=== PATIENT | male | born 1960 | race Caucasian/White ===

== ENCOUNTER → 2017-09-09 | Outpatient (CLI) | payer BC ==
[~2017-09-09] MED LIST: ASPI325T39 PO; BNC5 PO; DRN400 PO; GLC5; METF1000 PO; PRAV40TA2 PO; TRAV0.00 OPB
[2017-09-09 12:02] LABS: BLOOD UREA NITROGEN 11 mg/dl (7-18); CREATININE 0.87 mg/dl (0.60-1.40)
== END | disposition home or self-care (01) ==
LOC: C.LAB 11:19
PROVIDERS: ATTEND Emergency Medicine
DX: E11.621 Type 2 diabetes mellitus with foot ulcer (principal); L97.521 Non-pressure chronic ulcer of other part of left foot limited to breakdown of skin

== ENCOUNTER → 2017-09-10 | Outpatient (CLI) | payer BC ==
[~2017-09-10] MED LIST changes: +GADAVIST IV PRN
--- NOTE | 2017-09-10 12:10 | DIAGNOSTIC IMAGING REPORT ---
MRI OF THE LEFT FOREFOOT WITH AND WITHOUT CONTRAST CLINICAL HISTORY: Left foot nonhealing wound. Infection. COMPARISON STUDY: Left foot radiographs June 09, 2011. TECHNIQUE: Utilizing a 1.5 Nan magnet and dedicated coil, multiplanar, multiecho imaging of the left forefoot was performed pre and postcontrast administration. Injection of 11.5 cc of Gadavist IV was uneventful. FINDINGS: Postoperative findings consistent with amputation of the left first toe at the level of the metatarsophalangeal joint is noted. There is no marrow edema to suggest osteomyelitis. There is mild subcutaneous edema overlying the left first metatarsal head. There is no rim-enhancing fluid collection to suggest an abscess on the postcontrast images. There is mild enhancement along the plantar aspect of the left first metatarsal head which may reflect cellulitis. There is subchondral signal abnormality within the left second metatarsal head. Degenerative changes at the metatarsal sesamoid articulations of the left first toe are noted. IMPRESSION: 1. Status post amputation of the left first toe. No evidence of osteomyelitis. No abscess. Mild edema and enhancement adjacent to the left first metatarsal head may reflect mild cellulitis. 2. Subchondral signal abnormality and slight collapse within the left second metatarsal head which may reflect osteoarthritis or an osteochondral lesion. Electronically signed by: Ish Donovan M.D. 09/10/2017 12:08 PM Dictated Date/Time: 09/10/2017 12:01 PM
== END | disposition home or self-care (01) ==
LOC: C.MRI 10:49
PROVIDERS: ATTEND Physician Assistant
DX: E11.621 Type 2 diabetes mellitus with foot ulcer (principal); L97.521 Non-pressure chronic ulcer of other part of left foot limited to breakdown of skin

== ENCOUNTER 2018-02-22 11:53 | Emergency (ER) | payer BC ==
[~2018-02-22] VITALS: Ht 180.3 cm; Wt 119.2 kg
[~2018-02-22 11:53] MED LIST changes: -GADAVIST IV PRN
[2018-02-22 11:58] VITALS: TEMP 36.2; Ht 180.3 cm; Wt 119.2 kg
[2018-02-22] MEDS ORDERED: ASPIRIN 81 MG CHEW PO STA (12:18)
[2018-02-22 12:28] LABS: BASO % 0.8 %; BASO ABS # 0.08 K/uL (0-0.2); EOS ABS # 0.19 K/uL (0-0.5); HEMATOCRIT 45.1 % (42-52); IG# 0.11 K/uL (0.00-0.02); LYMPH ABS # 2.48 K/uL (1.2-3.4); MEAN CELL VOLUME 88.4 fL (80-100); MEAN CORPUSCULAR HEMOGLOBIN 31.4 pg (25-34); MEAN CORPUSCULAR HGB CONC 35.5 g/dl (32-36); MEAN PLATELET VOLUME 9.7 fL (7.4-10.4); MONO % 10.6 %; MONO ABS # 1.01 K/uL (0.11-0.59); NEUT % 59.4 %; NEUT ABS # 5.66 K/uL (1.4-6.5); PLATELET COUNT 257 K/uL (130-400); RED CELL DISTRIBUTION WIDTH CV 12.5 % (11.5-14.5); RED CELL DISTRIBUTION WIDTH SD 40.2 fL (36.4-46.3); WHITE BLOOD COUNT 9.53 K/uL (4.8-10.8)
[2018-02-22 12:36] LABS: PTT PATIENT 23.6 SECONDS (21.0-31.0)
--- NOTE | 2018-02-22 12:42 | DIAGNOSTIC IMAGING REPORT ---
SINGLE VIEW CHEST CLINICAL HISTORY: Cough. Atypical chest pain. FINDINGS: An AP, portable, upright chest radiograph is compared to study dated 11/20/2012 and correlated with chest CT dated 07/29/2012. The examination is degraded by portable technique and patient rotation. The heart is top normal for projection. Chronic interstitial thickening is similar to previous. No airspace consolidation or large pleural effusion is identified. No pneumothorax is seen. The bony thorax is grossly intact. IMPRESSION: No acute cardiopulmonary abnormality. Electronically signed by: Leon Guillaume M.D. 02/22/2018 12:41 PM Dictated Date/Time: 02/22/2018 12:40 PM
[2018-02-22 12:56] LABS: ALBUMIN 3.7 gm/dl (3.4-5.0); ALKALINE PHOSPHATASE 91 U/L (45-117); ALT/SGPT 36 U/L (12-78); AST/SGOT 27 U/L (15-37); BLOOD UREA NITROGEN 15 mg/dl (7-18); CALCIUM 8.5 mg/dl (8.5-10.1); CARBON DIOXIDE 25 mmol/L (21-32); CREATININE 0.82 mg/dl (0.60-1.40); GLUCOSE 160 mg/dl (70-99); POTASSIUM 4.4 mmol/L (3.5-5.1); SODIUM 135 mmol/L (136-145); TOTAL PROTEIN 7.6 gm/dl (6.4-8.2)
--- NOTE | 2018-02-22 13:01 | EMERGENCY ROOM VISIT NOTE ---
History Report prepared by Karla: Ondina Dunn Under the Supervision of: Dr. Alem Barreto M.D. First contact with patient: 12:08 Chief Complaint: CARDIAC ASSESSMENT Stated Complaint: SOB, PRESSURE IN CHEST, SORE JAW, BLOATED History of Present Illness The patient is a 57 year old male who presents to the Emergency Room for a cardiac assessment. The patient states that he has been having heart burn problems and has seen his PCP for it. He states that 1.5 months ago he was placed on Prilosec and told to schedule another appointment if it wasn't gone by then. He states that he went to his PCP today to schedule an appointment and they sent him over to Dr. Adair- [facility]. He reports that Dr. Adair sent him here. The patient states that yesterday he had chest pressure that radiated into his jaw. He states that he was "fooling around" in his wood shop when it came on. He states that the shop was hot and he was sweating, but he was not exerting himself at the time. The patient complains of an intermittent cough with intermittent phlegm for 2 months. The patient denies a fever, abdominal pain, leg swelling, and current chest pain. The patient notes that he used to see Dr. Vogt-[facility] 5 years ago for atrial fibrillation. He states that he had an ablation done and hasn't been in atrial fibrillation since. He notes that he takes a baby Aspirin daily and took one this morning. The patient notes that he has a history of Diabetes and his sugars have been between 80 and 170. Source of History: patient Onset: yesterday Position: chest Quality: pressure Timing: intermittent Associated Symptoms: + cough (productive), No fevers, No chest pain, No abdominal pain Note: The patient complains of the pain radiating to his jaw. The patient denies leg swelling. Review of Systems See HPI for pertinent positives & negatives. A total of 10 systems reviewed and were otherwise negative. Past Medical & Surgical Medical Problems: (1) Diabetes mellitus type 2 (2) Diabetic neuropathy (3) Diabetic peripheral neuropathy associated with type 2 diabetes mellitus (4) Erectile dysfunction associated with type 2 diabetes mellitus (5) History of diabetic ulcer of foot (6) Loss of sensation (7) Obesity (8) Peripheral vascular disease (9) Status post partial amputation of foot Family History FH: CAD (coronary artery disease) Stent Social History Smoking Status: Never Smoker Alcohol Use: occasionally Drug Use: none Marital Status: Housing Status: lives with family Occupation Status: employed Current/Historical Medications Scheduled Aspirin (Aspirin Ec), 325 MG PO DAILY Glipizide (Glipizide), QD@08 Metformin Hcl (Glucophage), 1,000 MG PO BID Olmesartan Medoxomil (Benicar), 5 MG PO DAILY Pravastatin Sodium (Pravastatin Sodium), 40 MG PO HS Travoprost (Travatan Z), 1 DROP OPB HS Allergies Coded Allergies: Lisinopril (Verified Adverse Reaction, Unknown, Cough., 02/22/18) Physical Exam Vital Signs Date Time Temp Pulse Resp B/P (MAP) Pulse Ox O2 Delivery O2 Flow Rate FiO2 02/22/18 13:58 71 20 147/81 98 02/22/18 12:12 73 02/22/18 11:58 36.2 67 20 155/75 97 Room Air Physical Exam Vital signs reviewed. General: Well-appearing, in no significant distress. HEENT: No scleral icterus, PERRLA, neck supple. Atraumatic. Cardiovascular: Regular rate and rhythm, no extra sounds. Pulmonary: Clear to auscultation bilaterally, normal work of breathing. Abdomen: Soft, obese, nontender, nondistended, positive bowel sounds. Musculoskeletal: Atraumatic, no peripheral edema. Neurologic: Patient awake alert and oriented x 3 Skin: Warm, dry, no rash Medical Decision & Procedures ER Provider Diagnostic Interpretation: Radiology results as stated below per my review and radiologist interpretation: SINGLE VIEW CHEST CLINICAL HISTORY: Cough. Atypical chest pain. FINDINGS: An AP, portable, upright chest radiograph is compared to study dated 11/20/2012 and correlated with chest CT dated 07/29/2012. The examination is degraded by portable technique and patient rotation. The heart is top normal for projection. Chronic interstitial thickening is similar to previous. No airspace consolidation or large pleural effusion is identified. No pneumothorax is seen. The bony thorax is grossly intact. IMPRESSION: No acute cardiopulmonary abnormality. Electronically signed by: Leon Guillaume M.D. 02/22/2018 12:41 PM Dictated Date/Time: 02/22/2018 12:40 PM Laboratory Results 02/22/18 12:10 Red Blood Count 5.10, Mean Corpuscular Volume 88.4, Mean Corpuscular Hemoglobin 31.4, Mean Corpuscular Hemoglobin Concent 35.5, Mean Platelet Volume 9.7, Neutrophils (%) (Auto) 59.4, Lymphocytes (%) (Auto) 26.0, Monocytes (%) (Auto) 10.6, Eosinophils (%) (Auto) 2.0, Basophils (%) (Auto) 0.8, Neutrophils # (Auto ) 5.66, Lymphocytes # (Auto) 2.48, Monocytes # (Auto) 1.01, Eosinophils # (Auto ) 0.19, Basophils # (Auto) 0.08 02/22/18 12:10 Test 02/22/18 12:10 White Blood Count 9.53 K/uL (4.8-10.8) Red Blood Count 5.10 M/uL (4.7-6.1) Hemoglobin 16.0 g/dL (14.0-18.0) Hematocrit 45.1 % (42-52) Mean Corpuscular Volume 88.4 fL (80-100) Mean Corpuscular Hemoglobin 31.4 pg (25-34) Mean Corpuscular Hemoglobin Concent 35.5 g/dl (32-36) Platelet Count 257 K/uL (130-400) Mean Platelet Volume 9.7 fL (7.4-10.4) Neutrophils (%) (Auto) 59.4 % Lymphocytes (%) (Auto) 26.0 % Monocytes (%) (Auto) 10.6 % Eosinophils (%) (Auto) 2.0 % Basophils (%) (Auto) 0.8 % Neutrophils # (Auto) 5.66 K/uL (1.4-6.5) Lymphocytes # (Auto) 2.48 K/uL (1.2-3.4) Monocytes # (Auto) 1.01 K/uL (0.11-0.59) Eosinophils # (Auto) 0.19 K/uL (0-0.5) Basophils # (Auto) 0.08 K/uL (0-0.2) RDW Standard Deviation 40.2 fL (36.4-46.3) RDW Coefficient of Variation 12.5 % (11.5-14.5) Immature Granulocyte % (Auto) 1.2 % Immature Granulocyte # (Auto) 0.11 K/uL (0.00-0.02) Prothrombin Time 10.5 SECONDS (9.0-12.0) Prothromb Time International Ratio 1.0 (0.9-1.1) Activated Partial Thromboplast Time 23.6 SECONDS (21.0-31.0) Partial Thromboplastin Ratio 0.9 Anion Gap 7.0 mmol/L (3-11) Est Creatinine Clear Calc Drug Dose 132.1 ml/min Estimated GFR () 114.6 Estimated GFR (Non- 98.9 BUN/Creatinine Ratio 18.5 (10-20) Calcium Level 8.5 mg/dl (8.5-10.1) Magnesium Level 1.9 mg/dl (1.8-2.4) Total Bilirubin 0.5 mg/dl (0.2-1) Direct Bilirubin 0.2 mg/dl (0-0.2) Aspartate Amino Transf (AST/SGOT) 27 U/L (15-37) Alanine Aminotransferase (ALT/SGPT) 36 U/L (12-78) Alkaline Phosphatase 91 U/L (45-117) Troponin I < 0.015 ng/ml (0-0.045) Total Protein 7.6 gm/dl (6.4-8.2) Albumin 3.7 gm/dl (3.4-5.0) Thyroid Stimulating Hormone (TSH) 1.730 uIu/ml (0.300-4.500) Laboratory results per my review. Medications Administered Medications (Trade) Dose Ordered Sig/Ca Route Start Time Stop Time Status Last Admin Dose Admin Aspirin (Aspirin Chew) 243 mg NOW STAT PO 02/22/18 12:18 02/22/18 12:20 DC 02/22/18 12:24 243 MG ECG Per My Interpretation Indication: chest pain Rate (beats per minute): 71 Rhythm: normal sinus Findings: RBBB, no ectopy, other (left vesicular block) Comparison ECG Date: 11/22/2012 Change: no significant change ED Course 1215: Past medical records reviewed. The patient was evaluated in room C5. A complete history and physical examination was performed. 1351: Upon reevaluation, the patient appeared to have improvement of his symptoms. I discussed findings with him. He verbalized agreement of the treatment plan. The patient was discharged home. Medical Decision Differential diagnoses includes acute coronary syndrome, pulmonary embolus, aortic dissection, musculoskeletal pain, pneumonia, pleural effusion, pneumothorax, gastritis, peptic ulcer disease. This patient was evaluated and appeared to be in no significant distress. Patient was given 243 mg of aspirin to chew, he had taken one earlier today. Patient had no discomfort at the time of my evaluation. He had had no pain since yesterday. Patient's troponin is negative. EKG is unchanged since 2012. 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 The patient was strongly encouraged to follow-up with his PCP for further cardiac evaluation. I do not think his symptoms represent ACS. With the duration of symptoms, no further laboratory rule out is necessary at this time. He will return to the ED for worsening of symptoms or any medical concerns. Medication Reconcilliation Current Medication List: was personally reviewed by me Blood Pressure Screening Patient's blood pressure: Elevated blood pressure Blood pressure disposition: Referred to PCP Impression Primary Impression: Chest pain Scribe Attestation The scribe's documentation has been prepared under my direction and personally reviewed by me in its entirety. I confirm that the note above accurately reflects all work, treatment, procedures, and medical decision making performed by me. Departure Information Dispostion Home / Self-Care Referrals Irma Mckeon PA-C (PCP) Forms IMPORTANT VISIT INFORMATION Patient Instructions My [facility] Additional Instructions Diagnosis: Chest pain Please continue your medications as prescribed. Be diligent when monitoring her blood glucose levels. Follow-up with your primary care physician for consideration of further cardiac testing. Return to the emergency department for worsening of symptoms or any medical concerns.
[2018-02-22 13:58] VITALS: BP 147/81; PULSE 71; O2SAT 98
== END 2018-02-22 14:00 | disposition home or self-care (01) ==
LOC: C.EDB 11:56 → C.EDC 14:00
DX: R07.9 Chest pain, unspecified (principal); E11.40 Type 2 diabetes mellitus with diabetic neuropathy, unspecified; E66.9 Obesity, unspecified; Z89.439 Acquired absence of unspecified foot; I25.10 Atherosclerotic heart disease of native coronary artery without angina pectoris; Z79.84 Long term (current) use of oral hypoglycemic drugs; Z79.82 Long term (current) use of aspirin; Z79.899 Other long term (current) drug therapy